=== PATIENT | female | born 1945 | race Caucasian/White ===

== ENCOUNTER → 2016-11-26 | Outpatient (CLI) | payer OTHER | LOC: MMPC 11:11 | PROVIDERS: ATTEND Nurse Practitioner | DX: I10 Essential (primary) hypertension (principal); R13.14 Dysphagia, pharyngoesophageal phase; R39.15 Urgency of urination; M79.674 Pain in right toe(s); Z91.89 Other specified personal risk factors, not elsewhere classified ==

== ENCOUNTER → 2016-12-29 | Outpatient (CLI) | payer OTHER | LOC: MMPC 11:11 | PROVIDERS: ATTEND Nurse Practitioner | DX: I10 Essential (primary) hypertension (principal); E55.9 Vitamin D deficiency, unspecified ==